=== PATIENT | female | born 2000 | race Caucasian/White ===

== ENCOUNTER 2020-02-25 11:17 | Emergency (ER) | payer MEDICAID, SELFPAY ==
[~2020-02-25] VITALS: Ht 162.6 cm; Wt 72.6 kg
[2020-02-25 11:20] VITALS: BP 120/84; Ht 162.6 cm; Wt 72.6 kg
== END 2020-02-25 12:04 | disposition home or self-care (01) ==
LOC: ED 11:17
DX: U07.1 COVID-19 (principal)
CPT/HCPCS: U0003

== ENCOUNTER 2020-03-06 15:47 | Emergency (ER) | payer OTHER, SELFPAY ==
[~2020-03-06] VITALS: Ht 160 cm; Wt 95.7 kg
[2020-03-06 16:20] VITALS: Ht 160 cm; Wt 95.7 kg
[2020-03-06 17:13] VITALS: BP 126/96
== END 2020-03-06 17:13 | disposition home or self-care (01) ==
LOC: ED 15:47
DX: U07.1 COVID-19 (principal); F41.9 Anxiety disorder, unspecified